=== PATIENT | male | born 1950 | race Hispanic/Latino ===

== ENCOUNTER 2018-01-21 16:23 | Emergency (ER) | payer MEDICARE ==
[~2018-01-21 16:23] MED LIST: AMLO10TA6 PO; ASPI-555 PO; CARV12.511 PO; CLOP75TA32 PO; INSU3INS3 SQ; INVOK100TB PO; RAMI2.5C16 PO; ROSU20TA PO
[2018-01-21 17:07] LABS: INR 0.96 (0.85-1.15); PROTHROMBIN TIME 10.1 SEC (9.6-11.6)
== END 2018-01-21 17:22 | disposition home or self-care (01) ==
LOC: EDH 16:23
DX: I82.A12 Acute embolism and thrombosis of left axillary vein (principal); I82.612 Acute embolism and thrombosis of superficial veins of left upper extremity; E11.9 Type 2 diabetes mellitus without complications; E78.5 Hyperlipidemia, unspecified; I10 Essential (primary) hypertension; Z95.0 Presence of cardiac pacemaker
CPT/HCPCS: 36415; 85610; 85730; 93971

== ENCOUNTER 2018-05-30 05:43 | Day surgery (SDC) | payer MEDICARE ==
[2018-05-29 12:08] LABS: BASOPHILS % (AUTO) 0.7 % (0.0-5.0); HEMATOCRIT 26.9 % (42-54); LYMPHOCYTES % (AUTO) 15.6 % (21.0-51.0); MEAN CORPUSCULAR HEMOGLOBIN 31.1 pg (27.0-33.0); MEAN CORPUSCULAR HGB CONC 33.1 g/dL (32.0-36.0); MEAN CORPUSCULAR VOLUME 94.1 fL (79-99); MONOCYTES % (AUTO) 7.2 % (3.0-13.0); NEUTROPHILS % (AUTO) 75.5 % (40.0-77.0); PLATELET COUNT (AUTO) 302 K/uL (130-400); RED BLOOD CELL COUNT(AUTO) 2.86 MIL/uL (4.50-6.20); RED CELL DISTRIBUTION WIDTH 15.8 % (11.0-15.5); WHITE BLOOD COUNT (AUTO) 6.7 K/uL (4.8-10.8)
[2018-05-29 12:14] VITALS: BP 99/51
[2018-05-29 12:20] LABS: CREATININE 1.2 mg/dL (0.5-1.5); POTASSIUM 4.1 mmol/L (3.5-5.1)
[2018-05-29 12:23] LABS: INR 0.98 (0.85-1.15); PARTIAL THROMBOPLASTIN TIME 28.9 SEC (26.3-35.5); PROTHROMBIN TIME 10.3 SEC (9.6-11.6)
--- NOTE | 2018-05-29 14:23 | NUR ---
LABS INFORMED LUCAS LOPEZ OF ABNORMAL H/H. NO ORDERS RECEIVED. PROCEED WITH PLANNED PROCEDURE.
[~2018-05-30] VITALS: Ht 170.2 cm; Wt 56.7 kg
[2018-05-30] VITALS (11 sets, daily range): BP systolic 96–113; BP diastolic 49–58
[~2018-05-30 05:43] MED LIST changes: -AMLO10TA6 PO; +AMLO10TA7 PO; -ASPI-555 PO; -CLOP75TA32 PO; +FAMO20TA8 PO; -INVOK100TB PO; +LINA5TAB PO; -ROSU20TA PO; +TYL3B PO
[2018-05-30] MEDS ORDERED: SODIUM CHLORIDE 0.9% 1000ML 1,000 ML IV ONE (06:28)
[2018-05-30] MEDS ORDERED: BUPIVACAINE/PF 0.25% 50ML VIAL IJ ONE (07:11)
[2018-05-30] MEDS ORDERED: MIDAZOLAM HCL 1 MG/ML 2ML VIAL ONE (07:12)
[2018-05-30] MEDS ORDERED: LIDOCAINE HCL 1% MDV 50ML VIAL ONE (07:12)
[2018-05-30] MEDS ORDERED: MEPERIDINE-PF 25 MG/ML SYG ONE (07:12)
[2018-05-30] MEDS ORDERED: CEFAZOLIN SODIUM 1 GM VIAL ONE ×2 (07:13)
--- NOTE | 2018-05-30 07:18 | NUR ---
PT HAS QUATER SIZE BRUISE TO LT HAND WITH SWELLING NOTED, PT STATES HIS HAND IS FLARED UP D/T GOUT. PT IS AAOX3 NO C/O CHEST PAIN, NO DISTRESS, PT TRANSFERRED IN BED TO SUBSTATION INSPECTOR BY ERINN BONNER. SON IN ROOM WITH PERSONAL BELONGINGS.
[2018-05-30] MEDS ORDERED: RIVA15TA PO (07:33)
[2018-05-30] MEDS ORDERED: THROMBIN-JMI 5000 UNIT/VIAL TP ONE (08:33)
[2018-05-30] MEDS ORDERED: ACETAMINOPHEN-CODEINE 300/30MG TAB PO PRN ×2 (09:00)
[2018-05-30] MEDS ORDERED: ONDANSETRON HCL 4 MG/2 ML VIAL IV PRN (09:00)
[2018-05-30] MEDS ORDERED: DEXTROSE 50%-WATER 50 ML DISP.SYRIN IV PRN (09:00)
[2018-05-30] MEDS ORDERED: INSULIN HUMULIN R 100 UNIT/ML 3ML SQ SCH (11:30)
[2018-05-30] MEDS ORDERED: CEFAZOLIN SODIUM 1 GM VIAL IVP SCH (14:00)
--- NOTE | 2018-05-30 15:00 | NUR ---
PT TOLERATED WELL, NO BLEEDING OR HEMATOMA TO LT UPPER CHEST INCISION SITE. PT AAOX3 , STABLE. PT HAS NO C/O PAIN TO SITE. SON AT BEDSIDE FOR INSTRUCTIONS, PRESCRIPTION GIVEN TO SON ( NUPUR) , SON STATED UNDERSTANDING. PT DRESSING AND PLACED IN A WHEELCHAIR, DRIVEN HOME BY SON.
== END 2018-05-30 15:00 | disposition home or self-care (01) ==
LOC: DAH 05:43
PROVIDERS: ATTEND Internal Medicine Cardiovascular Disease
DX: Z45.02 Encounter for adjustment and management of automatic implantable cardiac defibrillator (principal); Z79.899 Other long term (current) drug therapy; I25.10 Atherosclerotic heart disease of native coronary artery without angina pectoris; E11.51 Type 2 diabetes mellitus with diabetic peripheral angiopathy without gangrene; I10 Essential (primary) hypertension; E78.5 Hyperlipidemia, unspecified; Z79.4 Long term (current) use of insulin; Z83.3 Family history of diabetes mellitus; Z82.49 Family history of ischemic heart disease and other diseases of the circulatory system
CPT/HCPCS: 33263; 36415; 80048; 82948 ×2; 85025; 85610; 85730; 93005; 99156; 99157; A4218; A4606; C1721; J0690 ×3; J2175; J2250; J3490 ×3; J7030